=== PATIENT | female | born 1950 ===

== ENCOUNTER 2017-03-22 02:15 | Emergency (ER) | payer MEDICARE, OTHER ==
[2017-03-22 02:16] VITALS: BMI 45.1
[2017-03-22 02:31] VITALS: O2SAT 100
--- NOTE | 2017-03-22 02:38 | C.PDOC ---
History Of Present Illness Pt presents with cough and shortness of breath" i got an asthma attack" received a duoneb en route. Speaking in complete sentences. Some cough, occasionally greenish sputum. No f/c/n/v. No cp or palpitations Time Seen by Provider: 03/22/17 02:37 Chief Complaint (Nursing): Shortness Of Breath History Per: Patient History/Exam Limitations: no limitations Onset/Duration Of Symptoms: Hrs Current Symptoms Are (Timing): Still Present Initiating Event: Other (heat) Exacerbating Factor(s): Coughing Current Respiratory Medications: See Home Med List Severity: Moderate Pain Scale Rating Of: 4 Associated Symptoms: denies: Fever, Chills, Productive Cough, Dizziness Reports Recently: Treated By A Physician Recent travel outside of the [place]: No Additional History Per: Patient Past Medical History Reviewed: Historical Data, Nursing Documentation, Vital Signs Vital Signs: Last Vital Signs Temp 98.7 F 03/22/17 02:23 Pulse 110 H 03/22/17 02:23 Resp 20 03/22/17 02:23 BP 121/68 03/22/17 02:23 Pulse Ox 100 03/22/17 04:04 - Medical History PMH: Anxiety, Asthma, Bronchitis, CHF, COPD, Diabetes, Gastritis, HTN, Hypercholesterolemia, Hypothyroidism, Kidney Stones (39 yrs ago), Osteoporosis, Peripheral Edema Denies: Chronic Kidney Disease Family History: States: No Known Family Hx - Social History Hx Tobacco Use: No Hx Alcohol Use: No Hx Substance Use: No - Immunization History Hx Tetanus Toxoid Vaccination: No Hx Influenza Vaccination: No Hx Pneumococcal Vaccination: No Review Of Systems Constitutional: Negative for: Fever, Chills Eyes: Negative for: Vision Change ENT: Negative for: Throat Pain Cardiovascular: Negative for: Chest Pain, Palpitations Respiratory: Positive for: Shortness of Breath, Wheezing Gastrointestinal: Negative for: Nausea, Vomiting, Abdominal Pain Genitourinary: Negative for: Dysuria Musculoskeletal: Negative for: Back Pain Skin: Negative for: Rash, Lesions Neurological: Negative for: Weakness Psych: Negative for: Anxiety Physical Exam - Physical Exam Appears: Non-toxic Skin: Warm, Dry Head: Normacephalic Eye(s): bilateral: Normal Inspection Oral Mucosa: Moist Neck: Supple Chest: Symmetrical Cardiovascular: Rhythm Regular Respiratory: No Rales, No Rhonchi, Wheezing Gastrointestinal/Abdominal: Soft, No Tenderness, Other (obese) Back: No CVA Tenderness Extremity: No Pedal Edema Extremity: Bilateral: Atraumatic Neurological/Psych: Oriented x3, Normal Speech, Normal Cognition Gait: Steady ED Course And Treatment - Laboratory Results Result Diagrams: 03/22/17 03:01 03/22/17 03:01 ECG: Interpreted By Me, Viewed By Me O2 Sat by Pulse Oximetry: 100 Pulse Ox Interpretation: Normal - Radiology CXR: Interpreted by Me, Viewed By Me CXR Interpretation: No: Infiltrates, Fracture, Cardiomegaly, Pnemothorax Progress Note: cxr, nebs, steroids Reevaluation Time: 04:55 Reassessment Condition: Improved Medical Decision Making Medical Decision Making: Upon provider reevaluation patient is feeling better, is medically stable, and requires no further treatment in the ED at this time. Patient will be discharged home with Rx for prednisone . Counseling was provided and all questions were answered regarding diagnosis and need for follow up with dr ventura. There is agreement to discharge plan. Return if symptoms persist or worsen. Disposition Counseled Patient/Family Regarding: Studies Performed, Diagnosis, Need For Followup, Rx Given - Disposition Referrals: Marek Ventura MD [Staff Provider] - Disposition: HOME/ ROUTINE Disposition Time: 02:38 Condition: FAIR Prescriptions: Prednisone [Deltasone] 20 mg PO DAILY #5 tablet Instructions: Asthma (DC) - Clinical Impression Clinical Impression: Asthma exacerbation
[2017-03-22] MEDS: Albuterol-Ipratrop 3 mg / 0.5 (3 ml) UD IH SCH ×3 (02:45→03:11)
[2017-03-22] MEDS ORDERED: Albuterol-Ipratrop 3 mg / 0.5 (3 ml) UD ONE ×3 (02:53)
[2017-03-22 03:03] LABS: BASO % 0.5 % (0.0-2.0); EOS # 0.2 K/uL (0.0-0.7); EOS % 2.6 % (0.0-4.0); HEMATOCRIT 41.7 % (34.0-47.0); LYMPH # 3.3 K/uL (1.0-4.3); MEAN CELL VOLUME 86.2 fL (81.0-99.0); MEAN CORPUSCULAR HEMOGLOBIN 28.1 pg (27.0-31.0); MEAN CORPUSCULAR HGB CONC 32.6 g/dL (33.0-37.0); MONO # 0.8 K/uL (0.0-0.8); MONO % 8.7 % (0.0-10.0); NRBC % 0.1 % (0.0-2.0); RED CELL DISTRIBUTION WIDTH 14.4 % (11.5-14.5); WHITE BLOOD COUNT 9.3 K/uL (4.8-10.8)
[2017-03-22 03:12] LABS: INR 1.1
[2017-03-22 03:17] LABS: CHLORIDE 96 mmol/L (98-107); POTASSIUM 3.2 mmol/L (3.6-5.2); SODIUM 136 mmol/L (132-148)
[2017-03-22 03:19] LABS: ALKALINE PHOSPHATASE 80 U/L (38-126); ALT/SGPT 28 U/L (9-52); AST/SGOT 25 U/L (14-36); BILIRUBIN,TOTAL 0.7 mg/dL (0.2-1.3); BLOOD UREA NITROGEN 10 mg/dL (7-17); CARBON DIOXIDE 28 mmol/L (22-30); GFR AFRICAN-AMERICAN > 60; TOTAL PROTEIN 7.2 g/dL (6.3-8.3)
[2017-03-22 03:20] LABS: CALCIUM 8.7 mg/dl (8.6-10.4); GLUCOSE,RANDOM 334 mg/dL (65-105)
[2017-03-22 05:33] VITALS: BP 130/78; PULSE 103; RESP 24; TEMP 98.1
--- NOTE | 2017-03-22 09:45 | RAD ---
PROCEDURE: CHEST RADIOGRAPH, 1 VIEW HISTORY: Shortness of breath the COMPARISON: 12/14/2014. FINDINGS: LUNGS: The lungs are clear. There is a linear scar in the left lower lobe. PLEURA: No pneumothorax or pleural fluid seen. CARDIOVASCULAR: Normal. OSSEOUS STRUCTURES: No significant abnormalities. VISUALIZED UPPER ABDOMEN: Normal. OTHER FINDINGS: None. IMPRESSION: No acute findings.
== END 2017-03-22 04:55 | disposition home or self-care (01) ==
LOC: C.ER 02:15
DX: J45.901 Unspecified asthma with (acute) exacerbation (principal)
CPT/HCPCS: 71010; 80053; 85025; 85610; 85730; 87040; 96374; 99285; J2930

== ENCOUNTER 2017-06-25 19:37 | Emergency (ER) | payer MEDICARE, OTHER ==
[2017-06-25 19:37] VITALS: BMI 45.1
[2017-06-25 19:50] VITALS: TEMP 98.5; O2SAT 96
[2017-06-25] MEDS ORDERED: Sodium Chloride 0.9% 1,000 ML IV ONE (20:31)
[2017-06-25] MEDS ORDERED: Iohexol 240 (50 ml) PO ONE (20:32)
[2017-06-25] MEDS ORDERED: Iohexol 240 (50 ml) ONE (21:06)
[2017-06-25] MEDS ORDERED: Sodium Chloride 0.9% 1,000 ML ONE (21:07)
[2017-06-25 21:10] LABS: BASO % 0.3 % (0.0-2.0); EOS # 0.3 K/uL (0.0-0.7); EOS % 4.1 % (0.0-4.0); HEMATOCRIT 42.8 % (34.0-47.0); LYMPH # 3.8 K/uL (1.0-4.3); LYMPH % 48.6 % (20.0-40.0); MEAN CELL VOLUME 85.5 fL (81.0-99.0); MEAN CORPUSCULAR HEMOGLOBIN 27.9 pg (27.0-31.0); MEAN CORPUSCULAR HGB CONC 32.7 g/dL (33.0-37.0); MEAN PLATELET VOLUME 10.2 fL (7.2-11.7); MONO # 0.5 K/uL (0.0-0.8); MONO % 6.7 % (0.0-10.0); NRBC % 0.1 % (0.0-2.0); RED CELL DISTRIBUTION WIDTH 14.3 % (11.5-14.5); WHITE BLOOD COUNT 7.9 K/uL (4.8-10.8)
[2017-06-25 21:12] LABS: ALKALINE PHOSPHATASE 72 U/L (38-126); ALT/SGPT 33 U/L (9-52); AST/SGOT 36 U/L (14-36); BILIRUBIN,TOTAL 0.7 mg/dL (0.2-1.3); BLOOD UREA NITROGEN 11 mg/dL (7-17); CALCIUM 9.1 mg/dl (8.6-10.4); CARBON DIOXIDE 30 mmol/L (22-30); CHLORIDE 98 mmol/L (98-107); GFR AFRICAN-AMERICAN > 60; GLUCOSE,RANDOM 132 mg/dL (65-105); POTASSIUM 3.9 mmol/L (3.6-5.2); SODIUM 141 mmol/L (132-148); TOTAL PROTEIN 7.4 g/dL (6.3-8.3)
--- NOTE | 2017-06-25 21:23 | C.PDOC ---
History Of Present Illness 66 year old female who presents to the ER with a complaint of abdominal pain and diarrhea for the past week. Patient was seen in Dr. Howard's office and told it was a virus; however, she persists with abdominal pain, diarrhea, vomiting, and left flank pain. Denies fever or chills. Chief Complaint (Nursing): Abdominal Pain History Per: Patient History/Exam Limitations: no limitations Onset/Duration Of Symptoms: Days Current Symptoms Are (Timing): Still Present Radiation Of Pain To:: None Quality Of Discomfort: Unable To Describe Associated Symptoms: Vomiting, Diarrhea. denies: Fever, Chills Exacerbating Factors: None Alleviating Factors: None Recent travel outside of the [place]: No Abnormal Vaginal Bleeding: No Past Medical History Reviewed: Historical Data, Nursing Documentation, Vital Signs Vital Signs: Last Vital Signs Temp 98.5 F 06/26/17 02:15 Pulse 67 06/26/17 02:15 Resp 18 06/26/17 02:15 BP 110/76 06/26/17 02:15 Pulse Ox 96 06/26/17 02:50 - Medical History PMH: Anxiety, Asthma, Bronchitis, CHF, COPD, Diabetes, Gastritis, HTN, Hypercholesterolemia, Hypothyroidism, Kidney Stones (39 yrs ago), Osteoporosis, Peripheral Edema Surgical History: No Surg Hx Family History: States: Unknown Family Hx - Social History Hx Tobacco Use: No Hx Alcohol Use: No Hx Substance Use: No - Immunization History Hx Tetanus Toxoid Vaccination: No Hx Influenza Vaccination: No Hx Pneumococcal Vaccination: Yes Review Of Systems Constitutional: Negative for: Fever, Chills Gastrointestinal: Positive for: Vomiting, Abdominal Pain, Diarrhea Physical Exam - Physical Exam Appears: Non-toxic Skin: Normal Color, Warm, Dry Head: Atraumatic, Normacephalic Oral Mucosa: Moist Chest: Symmetrical, No Tenderness Cardiovascular: Rhythm Regular, No Murmur Respiratory: Normal Breath Sounds, No Rales, No Rhonchi, No Wheezing Gastrointestinal/Abdominal: Soft, Tenderness (LLQ), No Guarding, No Rebound Back: Other (Left flank tenderness) Neurological/Psych: Oriented x3, Normal Speech, Normal Cognition ED Course And Treatment - Laboratory Results Result Diagrams: 06/25/17 20:58 06/25/17 20:58 ECG: Interpreted By Me, Viewed By Me ECG Rhythm: Sinus Rhythm ECG Interpretation: No Acute Changes Interpretation Of ECG: NSR, poor R-progression from V1 to V3, abnormal tracings , no acute change Rate From EC O2 Sat by Pulse Oximetry: 96 (Room air) Pulse Ox Interpretation: Normal - CT Scan/US CT abd/pel Other Rad Studies (CT/US): Read By Radiologist, Radiology Report Reviewed CT/US Interpretation: FINDINGS: Lower thorax: Mild cardiomegaly. Minimal atelectasis/scarring. Apparent subcentimeter partially. calcified nodule RIGHT breast. ABDOMEN: Liver: Fatty infiltration. Gallbladder and bile ducts: No calcified stones. No ductal dilation. Pancreas: No ductal dilation. No mass. Spleen: No splenomegaly. Adrenals: No mass. Kidneys and ureters: Moderate scarring of RIGHT kidney. Small calculus within LEFT kidney. No. hydronephrosis. Stomach and bowel: No definite mural thickening. No obstruction. Appendix: Normal caliber. No inflammation. PELVIS: Bladder: Unremarkable. Reproductive: Unremarkable as visualized. ABDOMEN and PELVIS: Intraperitoneal space: No significant fluid collection. No free air. Minimal stranding within pelvis. anterior to uterus, nonspecific. Bones/joints: Mild degenerative changes of spine. No acute fracture. Soft tissues: Unremarkable. Vasculature: Mild atherosclerotic disease. No aneurysm. Lymph nodes: Few borderline enlarged lymph nodes within trey hepatis. IMPRESSION: 1. Nonobstructing renal calculi. 2. Hepatic steatosis. 3. Minimal focal stranding within pelvis, nonspecific. 4. Apparent breast lesion. Followup as clinically warranted. 5. Incidental/non-acute findings are described above. Progress Note: CT abd/pel, EKG, blood work, and urinalysis ordered. Morphine and IV fluids administered. Disposition - Disposition Referrals: Marek Howard MD [Primary Care Provider] - Disposition: HOME/ ROUTINE Disposition Time: 02:40 Condition: STABLE Prescriptions: traMADol/Acetaminophen [Ultracet 325 MG-37.5 MG] 1 tab PO Q6 #10 tab Instructions: Gastroenteritis (DC) Forms: [facility] ([place]wana) - POA Present On Arrival: None - Clinical Impression Clinical Impression: Abdominal pain, Gastroenteritis - Scribe Statement The provider has reviewed the documentation as recorded by the Scribe Edenilson Adame All medical record entries made by the Scribe were at my direction and personally dictated by me. I have reviewed the chart and agree that the record accurately reflects my personal performance of the history, physical exam, medical decision making, and the department course for this patient. I have also personally directed, reviewed, and agree with the discharge instructions and disposition.
[2017-06-25 22:09] LABS: RBC URINE < 1 /hpf (0-3); URINE BACTERIA RARE (<OCC); URINE BILIRUBIN NEGATIVE (NEGATIVE); URINE BLOOD NEGATIVE (NEGATIVE); URINE COLOR Yellow (YELLOW); URINE GLUCOSE (UA) NORMAL (Normal); URINE KETONE NEGATIVE (NEGATIVE); URINE LEUKOCYTE ESTERASE NEG Leu/uL (Negative); URINE PROTEIN NEGATIVE (NEGATIVE); URINE UROBILINOGEN NORMAL mg/dL (0.2-1.0); WBC URINE < 1 /hpf (0-5)
[2017-06-25] MEDS ORDERED: Iodixanol 320 MG/ML 100 ML BOTTLE IV ONE (22:15)
--- NOTE | 2017-06-26 01:14 | CT ---
EXAM: CT Abdomen and Pelvis With Intravenous Contrast CLINICAL HISTORY: 66 years old, female; Pain; Abdominal pain; Generalized; Additional info: Abd pain TECHNIQUE: Axial computed tomography images of the abdomen and pelvis with intravenous contrast. All CT scans at this facility use one or more dose reduction techniques, viz.: automated exposure control; ma/kV adjustment per patient size (including targeted exams where dose is matched to indication; i.e. head); or iterative reconstruction technique. Coronal and sagittal reformatted images were created and reviewed. CONTRAST: 100 mL of [id number] administered intravenously. COMPARISON: No relevant prior studies available. FINDINGS: Lower thorax: Mild cardiomegaly. Minimal atelectasis/scarring. Apparent subcentimeter partially calcified nodule RIGHT breast. ABDOMEN: Liver: Fatty infiltration. Gallbladder and bile ducts: No calcified stones. No ductal dilation. Pancreas: No ductal dilation. No mass. Spleen: No splenomegaly. Adrenals: No mass. Kidneys and ureters: Moderate scarring of RIGHT kidney. Small calculus within LEFT kidney. No hydronephrosis. Stomach and bowel: No definite mural thickening. No obstruction. Appendix: Normal caliber. No inflammation. PELVIS: Bladder: Unremarkable. Reproductive: Unremarkable as visualized. ABDOMEN and PELVIS: Intraperitoneal space: No significant fluid collection. No free air. Minimal stranding within pelvis anterior to uterus, nonspecific. Bones/joints: Mild degenerative changes of spine. No acute fracture. Soft tissues: Unremarkable. Vasculature: Mild atherosclerotic disease. No aneurysm. Lymph nodes: Few borderline enlarged lymph nodes within trey hepatis. IMPRESSION: 1. Nonobstructing renal calculi. 2. Hepatic steatosis. 3. Minimal focal stranding within pelvis, nonspecific. 4. Apparent breast lesion. Followup as clinically warranted. 5. Incidental/non-acute findings are described above.
[2017-06-26] MEDS ORDERED: Sodium Chloride 0.9% 1,000 ML IV ONE (01:40)
[2017-06-26] MEDS ORDERED: Sodium Chloride 0.9% 1,000 ML ONE (01:41)
[2017-06-26 02:17] VITALS: BP 110/76; PULSE 67; RESP 18
--- NOTE | 2017-06-26 15:51 | CARD ---
APPROVED REPORT EKG Measurement Heart [id number] ID [id number] <Conclusion> Normal sinus rhythm Cannot rule out Anterior infarct, age undetermined Abnormal ECG
== END 2017-06-26 02:58 | disposition home or self-care (01) ==
LOC: C.ER 19:37 → SUPCPDRO 19:37 → C.ER 06-26 02:58
DX: K52.9 Noninfective gastroenteritis and colitis, unspecified (principal); R10.32 Left lower quadrant pain
CPT/HCPCS: 74177; 80053; 81001; 83690; 85025; 87086; 93005; 96374; 99285; J2270; J7040; Q9966; Q9967

== ENCOUNTER 2018-01-01 12:32 | Emergency (ER) | payer MEDICARE, MEDICAID ==
[2018-01-01 12:32] VITALS: BMI 45.1
[2018-01-01 12:50] VITALS: TEMP 98.2
[2018-01-01 13:09] VITALS: RESP 20
[2018-01-01] MEDS: Albuterol-Ipratrop 3 mg / 0.5 (3 ml) UD IH SCH ×3 (13:30→13:57)
[2018-01-01] MEDS ORDERED: Albuterol-Ipratrop 3 mg / 0.5 (3 ml) UD ONE (13:39)
[2018-01-01 13:42] LABS: BASO % 0.2 % (0.0-2.0); EOS # 0.3 K/uL (0.0-0.7); EOS % 4.3 % (0.0-4.0); HEMOGLOBIN 12.5 g/dL (11.0-16.0); LYMPH # 2.2 K/uL (1.0-4.3); LYMPH % 30.5 % (20.0-40.0); MEAN CELL VOLUME 86.5 fL (81.0-99.0); MEAN CORPUSCULAR HGB CONC 33.5 g/dL (33.0-37.0); MONO # 0.6 K/uL (0.0-0.8); MONO % 7.9 % (0.0-10.0); NEUT # 4.1 K/uL (1.8-7.0); NEUT % 57.1 % (50.0-75.0); NRBC % 0.1 % (0.0-2.0); RBC 4.32 Mil/uL (3.80-5.20); RED CELL DISTRIBUTION WIDTH 14.2 % (11.5-14.5); WHITE BLOOD COUNT 7.2 K/uL (4.8-10.8)
--- NOTE | 2018-01-01 13:45 | RAD ---
PROCEDURE: CHEST RADIOGRAPH, 1 VIEW HISTORY: SOB, cough, wheezing COMPARISON: Chest radiograph dated 03/22/2017 FINDINGS: LUNGS: Left basilar linear atelectasis. PLEURA: No pneumothorax or pleural fluid seen. CARDIOVASCULAR: Cardiomediastinal silhouette within normal limits. OSSEOUS STRUCTURES: Unchanged. VISUALIZED UPPER ABDOMEN: Normal. OTHER FINDINGS: None. IMPRESSION: No active disease.
[2018-01-01 13:57] LABS: ALBUMIN 3.5 g/dL (3.5-5.0); ALT/SGPT 31 U/L (9-52); AST/SGOT 34 U/L (14-36); BLOOD UREA NITROGEN 10 mg/dL (7-17); CALCIUM 8.6 mg/dl (8.6-10.4); GFR AFRICAN-AMERICAN > 60; GFR NON-AFRICAN AMERICAN > 60
--- NOTE | 2018-01-01 14:50 | C.PDOC ---
Time Seen by Provider: 01/01/18 13:09 Chief Complaint (Nursing): Shortness Of Breath History Per: Patient, Family Onset/Duration Of Symptoms: Days (about 1 week) Current Symptoms Are (Timing): Still Present Initiating Event: Upper Respiratory Illness Exacerbating Factor(s): Coughing Current Respiratory Medications: See Home Med List, Albuterol Severity: Moderate Associated Symptoms: Productive Cough Reports Recently: Treated By A Physician (Pt finished a Z-yessica prescribed by her PMD 3 days ago.) Additional History Per: Prior Records Past Medical History Reviewed: Historical Data, Nursing Documentation, Vital Signs Vital Signs: Last Vital Signs Temp 98.2 F 01/01/18 12:40 Pulse 88 01/01/18 12:40 Resp 20 01/01/18 13:08 BP 132/85 01/01/18 12:40 Pulse Ox 98 01/01/18 13:08 - Medical History PMH: Anxiety, Asthma, Bronchitis, CHF, COPD, Diabetes, Gastritis, HTN, Hypercholesterolemia, Hypothyroidism, Kidney Stones (39 yrs ago), Osteoporosis, Peripheral Edema Family History: States: Unknown Family Hx - Social History Hx Tobacco Use: No (Quit 10 years ago) Hx Alcohol Use: No Hx Substance Use: No - Immunization History Hx Tetanus Toxoid Vaccination: No Hx Influenza Vaccination: No Hx Pneumococcal Vaccination: Yes Review Of Systems Except As Marked, All Systems Reviewed And Found Negative. Constitutional: Negative for: Fever ENT: Positive for: Nose Congestion, Throat Pain Respiratory: Positive for: Cough, Shortness of Breath, Sputum, Wheezing. Negative for: Hemoptysis Gastrointestinal: Negative for: Vomiting, Abdominal Pain, Diarrhea Musculoskeletal: Negative for: Neck Pain Skin: Negative for: Rash Neurological: Negative for: Weakness, Numbness Physical Exam - Physical Exam Appears: Non-toxic, No Acute Distress Skin: Normal Color, Warm, Dry, No Rash Head: Atraumatic, Normacephalic Eye(s): bilateral: Normal Inspection, PERRL, EOMI Throat: Erythema, No Exudate, No Drooling, No Mass Neck: Normal ROM, Supple Cardiovascular: Rhythm Regular Respiratory: No Accessory Muscle Use, Wheezing Gastrointestinal/Abdominal: Soft, No Tenderness Extremity: Normal ROM, No Pedal Edema, No Calf Tenderness Neurological/Psych: Oriented x3, Normal Motor, Normal Sensation ED Course And Treatment - Laboratory Results Result Diagrams: 01/01/18 13:33 01/01/18 13:33 Lab Interpretation: No Acute Changes ECG: Interpreted By Me, Viewed By Me ECG Rhythm: Sinus Rhythm, PVC, Nonspecific Changes Rate From EC O2 Sat by Pulse Oximetry: 98 Pulse Ox Interpretation: Normal - Radiology CXR: Viewed By Me, Read By Radiologist CXR Interpretation: Yes: No Acute Disease, Heart Size (WNL) Progress Note: Pt feels much better and wants to go home. No SOB after treatment. Lungs mostly clear. Reassessment Condition: Improved Progress - Interventions Interventions:: Observation - Medications Administered Inhaled nebulized: Anticholinergic, Beta-2 agonist Intravenous: Corticosteroid - Data Reviewed Data Reviewed: Lab, Diagnostic imaging, EKG, Old records - Patient Status Patient status: Mostly improved - Continuity of Care Discussed patient case with:: Patient, Family-HIPPA compliant, ED Nurse - Patient Plan Patient Plan: Discharge, F/U with PCP, Continue present meds Disposition Counseled Patient/Family Regarding: Studies Performed, Diagnosis, Need For Followup, Rx Given - Disposition Referrals: Claudette Lopez MD [Medical Doctor] - Disposition: HOME/ ROUTINE Disposition Time: 14:53 Condition: IMPROVED Instructions: Asthma, Adult (DC) Forms: [facility] (Urdu), General Discharge Instructions - Clinical Impression Clinical Impression: Asthma exacerbation
[2018-01-01 15:24] VITALS: BP 109/48; PULSE 93; O2SAT 97
--- NOTE | 2018-01-03 23:27 | CARD ---
APPROVED REPORT EKG Measurement Heart [id number] <Conclusion> Sinus rhythm with occasional premature ventricular complexes Nonspecific ST abnormality Abnormal ECG
== END 2018-01-01 15:23 | disposition home or self-care (01) ==
LOC: C.ER 12:32
DX: J45.901 Unspecified asthma with (acute) exacerbation (principal)
CPT/HCPCS: 71045; 80053; 83735; 83880; 84484; 85025; 87804; 93005; 94640; 96374; 99285; J2930

== ENCOUNTER 2018-08-25 11:00 | Emergency (ER) | payer OTHER ==
[2018-08-25 11:00] VITALS: BMI 45.1
[2018-08-25] MEDS ORDERED: Sodium Chloride 0.9% 1,000 ML IV ONE (12:22)
--- NOTE | 2018-08-25 12:30 | C.PDOC ---
History Of Present Illness 67 y/o female, with PMHx of diabetes, hypertension, kidney stones, and COPD, presents to ED complaining of left sided back pain that radiates to the left abdomen. Patient states she did not take any pain medications. Notes her sympto ms are similar to when she was seen for kidney stones. Patient also complains of vomiting yesterday, nausea, and dysuria. Denies fever, chest pain, sob, leg swelling, or headache. Time Seen by Provider: 08/25/18 12:14 Chief Complaint (Nursing): Back Pain History Per: Patient, Family (daughter) History/Exam Limitations: no limitations Onset/Duration Of Symptoms: Days Current Symptoms Are (Timing): Still Present Past Medical History Reviewed: Historical Data, Nursing Documentation, Vital Signs Vital Signs: Last Vital Signs Temp 98.4 F 08/25/18 11:07 Pulse 68 08/25/18 11:07 Resp 22 08/25/18 11:07 BP 149/78 08/25/18 11:07 Pulse Ox 97 08/25/18 11:07 - Medical History PMH: Anxiety, Asthma, Bronchitis, CHF, COPD, Diabetes, Gastritis, HTN, Hypercholesterolemia, Hypothyroidism, Kidney Stones, Osteoporosis, Peripheral Edema Family History: States: No Known Family Hx - Social History Hx Tobacco Use: No (Quit 10 years ago) Hx Alcohol Use: No Hx Substance Use: No - Immunization History Hx Tetanus Toxoid Vaccination: No Hx Influenza Vaccination: No Hx Pneumococcal Vaccination: Yes Review Of Systems Except As Marked, All Systems Reviewed And Found Negative. Constitutional: Negative for: Fever, Chills Gastrointestinal: Positive for: Nausea, Vomiting, Abdominal Pain Genitourinary: Positive for: Dysuria Musculoskeletal: Positive for: Back Pain Physical Exam - Physical Exam Appears: Non-toxic, Other (uncomfortable) Skin: Warm, Dry Head: Atraumatic, Normacephalic Eye(s): bilateral: Normal Inspection, EOMI Nose: Normal Oral Mucosa: Moist Neck: Normal, Normal ROM, Supple Chest: Symmetrical Cardiovascular: Rhythm Regular Respiratory: Normal Breath Sounds, No Rales, No Rhonchi, No Wheezing Gastrointestinal/Abdominal: Soft, Tenderness (left sided abdominal pain), Other (obese) Back: No Vertebral Tenderness, Paraspinal Tenderness (left sided back pain) Neurological/Psych: Oriented x3, Normal Speech ED Course And Treatment - Laboratory Results Result Diagrams: 08/25/18 12:41 08/25/18 12:41 O2 Sat by Pulse Oximetry: 97 (RA) Pulse Ox Interpretation: Normal - CT Scan/US Abd pelvis CT Other Rad Studies (CT/US): Read By Radiologist, Radiology Report Reviewed CT/US Interpretation: Accession No. : [id number]. Patient Name / ID : QASIM PERSAUD / [id number]. Exam Date : 08/25/2018 13:16:14 ( Approved ). Study Comment : Sex / Age : F / 67Y. Creator : Graciela Avila. Dictator : John Antoine MD. Avp : Biology Department Chair : John Antoine MD. Approver2 : Report Date : 08/25/2018 13:20:16. My Comment : . Date of service: 08/25/2018. PROCEDURE: CT Abdomen and Pelvis without intravenous contrast. HISTORY: Abdominal pain. COMPARISON: 06/26/2017. TECHNIQUE: Multiple contiguous axial images were performed through the abdomen and pelvis without the use of intravenous contrast. Subsequently, sagittal and coronal reformatted images were obtained. Radiation dose: Total exam DLP = 1168.13 mGy-cm. This CT exam was performed using one or more of the following dose reduction techniques: Automated exposure control, adjustment of the mA and/or kV according to patient size, and/or use of iterative reconstruction technique. FINDINGS: LOWER THORAX: 5 millimeter nodule within the left lower lobe with the lung. Scattered atelectasis at the lung bases. LIVER: Fatty infiltration of the liver. GALLBLADDER AND BILE DUCTS: Unremarkable. PANCREAS: Fatty atrophy of the pancreas. SPLEEN: Unremarkable. ADRENALS: Unremarkable. No mass. KIDNEYS AND URETERS: Dimin utive/atrophic right kidney with a multilobulated appearance. 4 millimeter nonobstructive calcification within the midpole of the right kidney. No gross hydronephrosis. Diminutive left kidney. 6 millimeter nonobstructive calcification within the lower pole of the left kidney. No hydronephrosis. VASCULATURE: Unremarkable. No aortic aneurysm. Aortic atherosclerotic calcification or mural plaque present. BOWEL: Underdistended sigmoid colon. Few scattered colonic diverticuli. Moderate fecal retention in the remainder of the colon. APPENDIX: Unremarkable. Normal appendix. PERITONEUM: Unremarkable. No free fluid. No free air. LYMPH NODES: Few shotty para-aortic and mesenteric nodes. BLADDER: Underdistended urinary bladder. REPRODUCTIVE: Question calcification at the left aspect of the uterus. BONES: Degenerative changes in the spine with paravertebral osteophytes. OTHER FINDINGS: Diffuse fatty atrophy of the anterior right rectus abdominal wall musculature with some fatty stranding. Clinical correlation. Previously noted breast lesion was not well imaged on the current study. Correlation with mammography would be helpful if indicated. IMPRESSION: 1. Underdistended sigmoid colon. Few scattered colonic diverticuli. Moderate fecal retention in the remainder of the colon. 2. Diffuse fatty atrophy of the anterior right rectus abdominal wall musculature with some fatty stranding. Clinical correlation. 3. Fatty infiltration of the liver. 4. Fatty atrophy of the pancreas. 5. Diminutive/atrophic right kidney with a multilobulated appearance. 4 millimeter nonobstructive calcification within the midpole of the right kidney. No gross hydronephrosis. 6. Diminutive left kidney. 6 millimeter nonobstructive calcification within the lower pole of the left kidney. No hydronephrosis. 7. 5 millimeter nodule within the left lower lobe of the lung. Scattered atelectasis at the lung bases. 8. Previously noted breast lesion was not well imaged on the current study. Correlation with mammography would be helpful if indicated. Additional findings as above. Progress Note: CT abd/pel, bloodwork, and urinalysis ordered. IV fluids and toradol administered. On reassessment, patient is eating [employer] fries and burger. She resting comfortably, with improvement of back pain. Patient remains afebrile, with no bony tenderness, extremity numbness or weakness, or abdominal pain. Patient is ambulatory in the emergency department with no signs of discomfort. Patient was advised to follow up with physician/clinic in 1-[address] results discussed with Dr Graf who notes no new changes from previous CT including the atrophy of the rectus abdominal wall. Pt was given the CT results, informed of all the findings including the lung nodule and instructed for strict follow up. Daughter at bedside. Case discussed with Dr Neves, agreed upon plan and discharge. Disposition - Disposition Disposition: HOME/ ROUTINE Disposition Time: 14:52 Condition: STABLE Additional Instructions: Follow up with your primary doctor on Monday. Show them your cat scan results. Return to ER if symptoms persist or worsen. Instructions: Acute Abdomen (Belly Pain), Adult (DC) Forms: [employer] (Hungarian) - Clinical Impression Clinical Impression: Abdominal pain - PA / DOORPERSON / Resident Statement MD/DO has reviewed & agrees with the documentation as recorded. - Scribe Statement The provider has reviewed the documentation as recorded by the Scribe Stephanie Ledezma All medical record entries made by the Scribe were at my direction and person ally dictated by me. I have reviewed the chart and agree that the record accurately reflects my personal performance of the history, physical exam, medical decision making, and the department course for this patient. I have also personally directed, reviewed, and agree with the discharge instructions and disposition.
[2018-08-25 12:44] LABS: BASO # 0.1 K/uL (0.0-0.2); BASO % 0.9 % (0.0-2.0); EOS # 0.5 K/uL (0.0-0.7); EOS % 8.2 % (0.0-4.0); LYMPH # 2.2 K/uL (1.0-4.3); LYMPH % 37.1 % (20.0-40.0); MEAN CELL VOLUME 86.7 fL (81.0-99.0); MEAN CORPUSCULAR HEMOGLOBIN 28.9 pg (27.0-31.0); MEAN CORPUSCULAR HGB CONC 33.3 g/dL (33.0-37.0); MEAN PLATELET VOLUME 9.9 fL (7.2-11.7); MONO # 0.5 K/uL (0.0-0.8); MONO % 7.7 % (0.0-10.0); NEUT # 2.7 K/uL (1.8-7.0); NEUT % 46.1 % (50.0-75.0); NRBC % 0.1 % (0.0-2.0); RBC 4.49 Mil/uL (3.80-5.20); WHITE BLOOD COUNT 5.9 K/uL (4.8-10.8)
[2018-08-25 12:55] LABS: ALBUMIN 3.3 g/dL (3.5-5.0); ALT/SGPT 44 U/L (9-52); AST/SGOT 49 U/L (14-36); BLOOD UREA NITROGEN 9 mg/dL (7-17); CALCIUM 8.7 mg/dl (8.6-10.4); GFR NON-AFRICAN AMERICAN > 60; LIPASE 76 U/L (23-300)
--- NOTE | 2018-08-25 14:25 | CT ---
Date of service: 08/25/2018 PROCEDURE: CT Abdomen and Pelvis without intravenous contrast HISTORY: Abdominal pain COMPARISON: 06/26/2017 TECHNIQUE: Multiple contiguous axial images were performed through the abdomen and pelvis without the use of intravenous contrast. Subsequently, sagittal and coronal reformatted images were obtained. Radiation dose: Total exam DLP = 1168.13 mGy-cm. This CT exam was performed using one or more of the following dose reduction techniques: Automated exposure control, adjustment of the mA and/or kV according to patient size, and/or use of iterative reconstruction technique. FINDINGS: LOWER THORAX: 5 millimeter nodule within the left lower lobe with the lung. Scattered atelectasis at the lung bases. LIVER: Fatty infiltration of the liver. GALLBLADDER AND BILE DUCTS: Unremarkable. PANCREAS: Fatty atrophy of the pancreas. SPLEEN: Unremarkable. ADRENALS: Unremarkable. No mass. KIDNEYS AND URETERS: Diminutive/atrophic right kidney with a multilobulated appearance. 4 millimeter nonobstructive calcification within the midpole of the right kidney. No gross hydronephrosis. Diminutive left kidney. 6 millimeter nonobstructive calcification within the lower pole of the left kidney. No hydronephrosis. VASCULATURE: Unremarkable. No aortic aneurysm. Aortic atherosclerotic calcification or mural plaque present. BOWEL: Underdistended sigmoid colon. Few scattered colonic diverticuli. Moderate fecal retention in the remainder of the colon. APPENDIX: Unremarkable. Normal appendix. PERITONEUM: Unremarkable. No free fluid. No free air. LYMPH NODES: Few shotty para-aortic and mesenteric nodes. BLADDER: Underdistended urinary bladder. REPRODUCTIVE: Question calcification at the left aspect of the uterus. BONES: Degenerative changes in the spine with paravertebral osteophytes. OTHER FINDINGS: Diffuse fatty atrophy of the anterior right rectus abdominal wall musculature with some fatty stranding. Clinical correlation. Previously noted breast lesion was not well imaged on the current study. Correlation with mammography would be helpful if indicated. IMPRESSION: 1. Underdistended sigmoid colon. Few scattered colonic diverticuli. Moderate fecal retention in the remainder of the colon. 2. Diffuse fatty atrophy of the anterior right rectus abdominal wall musculature with some fatty stranding. Clinical correlation. 3. Fatty infiltration of the liver. 4. Fatty atrophy of the pancreas. 5. Diminutive/atrophic right kidney with a multilobulated appearance. 4 millimeter nonobstructive calcification within the midpole of the right kidney. No gross hydronephrosis. 6. Diminutive left kidney. 6 millimeter nonobstructive calcification within the lower pole of the left kidney. No hydronephrosis. 7. 5 millimeter nodule within the left lower lobe of the lung. Scattered atelectasis at the lung bases. 8. Previously noted breast lesion was not well imaged on the current study. Correlation with mammography would be helpful if indicated. Additional findings as above.
[2018-08-25 14:58] VITALS: BP 156/81; PULSE 61; RESP 18; TEMP 98.2
[2018-08-25 20:06] VITALS: O2SAT 97
== END 2018-08-25 14:58 | disposition home or self-care (01) ==
LOC: C.ER 11:00
DX: R10.9 Unspecified abdominal pain (principal)
CPT/HCPCS: 74176; 80053; 83690; 85025; 96361; 96374; 99283; J1885; J7030